=== PATIENT | male | born 1945 | race Caucasian/White ===

== ENCOUNTER 2016-08-11 10:27 | Inpatient (IN) | payer MEDICARE ==
[~2016-08-11] VITALS: Ht 172.7 cm; Wt 117.5 kg
[~2016-08-11 10:27] MED LIST: ACET-868 PO; ASPI81TA2 PO; CHOL100034 PO; CLON0.5T PO; DOCU-25 PO; FERR-58 PO; GABA-534 PO; HYDR-3326 PO; IBUP-1619 PO; LAMO200T39 PO; LEVO50TA PO; LIDO30AD10 TP; MAGN200T5 PO; ONDA-25 PO; OXCA150T5 PO; PANT40TA4 PO; POTA20TA83 PO
--- NOTE | 2016-08-11 10:32 | NUR ---
Pt bbra from b/c 881 for diarrhea. ER bed 3 . Pt placed on monitor. VSS.
--- NOTE | 2016-08-11 10:41 | NUR ---
DR QUEEN AT BEDSIDE FOR EVAL.
[2016-08-11] MEDS ORDERED: IV NS 0.9% 500 ML IV ONE (10:47)
[2016-08-11] MEDS ORDERED: IV SET PRIMARY PUMP SET 1 EA INFUS.SET MC ONE ×3 (10:48→16:48)
[2016-08-11] MEDS ORDERED: IV NS 0.9% 500 ML BAG IV ONE (11:00)
[2016-08-11 11:04] LABS: BASOPHILS % (AUTO) 0.6 % (0.0-2.0); EOSINOPHILS % (AUTO) 0.5 % (0.0-6.0); HEMATOCRIT 44 % (39-51); HEMOGLOBIN 14.9 g/dL (13.5-17.5); LYMPHOCYTES # (AUTO) 1.2 /CMM (0.8-4.8); LYMPHOCYTES % (AUTO) 17.8 % (20.0-44.0); MEAN CORPUSCULAR HEMOGLOBIN 31 PG (26.0-33.0); MEAN CORPUSCULAR HGB CONC 34 g/dl (31.0-36.0); MEAN CORPUSCULAR VOLUME 92 fL (80-96); MONOCYTES # (AUTO) 0.5 /CMM (0.1-1.30); MONOCYTES % (AUTO) 7.2 % (2.0-12.0); NEUTROPHILS # (AUTO) 5.2 /CMM (1.8-8.9); NEUTROPHILS % (AUTO) 73.9 % (43.0-81.0); PLATELET COUNT (AUTO) 218 /CMM (150-450); RDW COEFFICIENT OF VARIATION 12.7 (11.5-15.0); RED BLOOD CELL COUNT(AUTO) 4.76 MIL/uL (4.5-6.0); WHITE BLOOD COUNT (AUTO) 6.9 K/uL (4.3-11.0)
--- NOTE | 2016-08-11 11:14 | NUR ---
URINE SAMPLE COLLECTED SENT TO LAB
[2016-08-11 11:19] LABS: CALCIUM, SERUM 9.2 mg/dL (8.5-10.1); CREATININE 1.2 mg/dL (0.6-1.3); INR 1.07 (0.87-1.13); POTASSIUM 3.7 mmol/L (3.5-5.1); PROTHROMBIN TIME 11.1 SECS (9.5-12.7)
[2016-08-11 11:25] LABS: APPEARANCE,URINE Clear (CLEAR); BILIRUBIN,URINE Negative (NEGATIVE); BLOOD, URINE Negative Ery/uL (NEGATIVE); COLOR,URINE Yellow (YELLOW); KETONES,URINE Negative (NEGATIVE); LEUKOCYTE ESTERASE ,URINE Negative (NEGATIVE); NITRITE, URINE Negative (NEGATIVE); PH,URINE 5.5 (5.0-8.0); PROTEIN,URINE Negative (NEGATIVE); UGLUCOSE Negative (NEGATIVE); UROBILINOGEN,URINE 0.2 EU/dL (0.2)
[2016-08-11 11:25] LABS: ALBUMIN 3.5 g/dL (3.4-5.0); BILIRUBIN,DIRECT 0.1 mg/dL (0.0-0.2); BILIRUBIN,TOTAL 0.5 mg/dL (0.2-1.0); TOTAL PROTEIN, SERUM 6.9 g/dL (6.4-8.2)
--- NOTE | 2016-08-11 11:51 | NUR ---
CALLED KAR[facility] TO READ CT
[2016-08-11] MEDS ORDERED: FLAGYL/NS RTU 500 MG/100 ML PIGGYBACK IV ONE (12:30)
[2016-08-11] MEDS ORDERED: LEVOFLOXACIN 750 MG /D5W 150ML PIGGYBACK IV ONE (12:30)
--- NOTE | 2016-08-11 12:35 | NUR ---
CALLED (SURGEON DARKLIGHT INSPECTOR), TRANSFERRED CALL TO
[2016-08-11] MEDS ORDERED: LEVOFLOXACIN 750 MG /D5W 150ML 150 ML IV ONE (12:37)
[2016-08-11] MEDS ORDERED: METRONIDAZOLE 500MG/ NS 100ML 100 ML IV ONE (12:37)
[2016-08-11] MEDS ORDERED: IV SET PRIMARY 1 EA INFUS.SET MC ONE (12:37)
--- NOTE | 2016-08-11 12:39 | NUR ---
[facility] PAGED [phone] KAY ANIMAL PATHOLOGIST
--- NOTE | 2016-08-11 12:41 | NUR ---
CALLED NURSING SUP. FOR MS BED
[2016-08-11] MEDS ORDERED: IV NS 0.9% 1,000 ML IV PRN (13:23)
[2016-08-11] MEDS ORDERED: CALC500T52 PO (13:26)
[2016-08-11] MEDS ORDERED: POTA8TAB8 PO (13:26)
[2016-08-11] MEDS ORDERED: ATOR10TA PO (13:26)
[2016-08-11] MEDS ORDERED: TAMS-12 PO (13:26)
[2016-08-11] MEDS ORDERED: GABA-532 PO (13:26)
[2016-08-11] MEDS ORDERED: RISP0.253 PO (13:26)
[2016-08-11] MEDS ORDERED: FURO-144 PO (13:26)
[2016-08-11] MEDS ORDERED: HYDR-3976 PO (13:26)
[2016-08-11] MEDS ORDERED: Z GUARD REMEDY 2 OZ OINT TP PRN (13:30)
[2016-08-11] MEDS ORDERED: MAG HYDROX/AL HYDROX/SIMETH 30 ML UDC PO PRN (13:30)
[2016-08-11] MEDS ORDERED: MORPHINE SULFATE INJ 2 MG/ML DISP.SYRIN IV PRN (13:30)
[2016-08-11] MEDS ORDERED: HYDROCODONE/APAP 5/325MG 1 EACH TABLET PO PRN (13:30)
[2016-08-11] MEDS ORDERED: ACETAMINOPHEN 325 MG TABLET PO PRN (13:30)
[2016-08-11] MEDS ORDERED: MAGNESIUM HYDROXIDE 30 ML UDC PO PRN (13:30)
[2016-08-11] MEDS ORDERED: ONDANSETRON HCL/PF 4 MG/2 ML VIAL IVP PRN (13:30)
--- NOTE | 2016-08-11 13:35 | NUR ---
GAVE REPORT TO JOSE ANN MEDSURG [id number]
[2016-08-11 15:00] VITALS: BP 123/70
--- NOTE | 2016-08-11 15:00 | NUR ---
M/S RN - ADMISSION RECEIVED REPORT FROM LAND INSPECTOR. PT BROUGHT TO FLOOR VIA GURNEY. NO S/S OF DISTRESS. AOX4. DENIES SOB. DENIES CHEST PAIN. DENIES ANY OTHER PAIN. IV HL PATENT AND INTACT. PT SKIN CHECKED AND INTACT. PT DENIES ABDOMINAL PAIN AT THIS TIME, LAST DIARRHEA EPISODE WAS IN ER. ALL BELONGINGS CONFIRMED WITH PT AT TIME OF TRANSFER. PT ORIENTED TO ROOM. SIDE RAILS UPX2, BED ALARM ON, CALL LIGHT WITHIN REACH, BED LOCKED AND IN LOWEST POSITION.
[2016-08-11 16:00] VITALS: BP 123/70
[2016-08-11] MEDS: MAGNESIUM OXIDE 400 MG TABLET PO SCH ×2 (16:38→16:50)
[2016-08-11] MEDS: risperiDONE 0.25 MG TABLET PO SCH (16:41)
[2016-08-11] MEDS: GABAPENTIN 100 MG CAPSULE PO SCH (16:47)
[2016-08-11] MEDS ORDERED: SECONDARY IV SET 1 EA INFUS.SET MC ONE (16:49)
[2016-08-11] MEDS: METRONIDAZOLE 500MG/ NS 100ML 500 MG in PREMIX 1 EA IV SCH (17:32)
[2016-08-11] MEDS: IV NS 0.9% 1,000 ML IV PRN (17:34)
--- NOTE | 2016-08-11 18:50 | NUR ---
M/S RN - CLOSING NOTE PT RESTING IN BED. NO S/S OF DISTRESS. BREATHING IS EVEN AND UNLABORED ON RA. DENIES PAIN. NO DIARRHEA DURING SHIFT. EDUCATED PT TO CALL NURSE FOR STOOL COLLECTION. IVF RUNNING. SIDE RAILS UPX2, CALL LIGHT WITHIN REACH, BED LOCKED AND IN LOWEST POSITION. WILL ENDORSE TO RADIOLOGIC TECHNOLOGY INSTRUCTOR FOR NICOLETTE.
--- NOTE | 2016-08-11 19:00 | NUR ---
MS RN OPENING NOTES RECEIVED PATIENT IN BED IN STABLE CONDITION, SEMI FOWLERS POSITION, NO S/S OF DISTRESS NO SOB, NO CHEST PAIN. NO COMPLAINS OF PAIN. WITH NO S/S OF DISTRESS NOTED, IV SITE INTACT WITH S/S OF INFILTRATION. HAZARD FREE ENVIRONMENT.ON LOW BED TO ENSURE SAFETY, CALL LIGHT WITHIN REACH. WILL CONTINUE TO MONITOR
[2016-08-11 20:00] VITALS: BP 120/57
[2016-08-11 20:25] VITALS: BP 120/57
[2016-08-11] MEDS: FERROUS SULFATE (325 MG) 325 MG/TAB TABLET PO SCH (21:23)
[2016-08-11] MEDS: FUROSEMIDE 40 MG TABLET PO SCH (21:23)
[2016-08-11] MEDS: CIPROFLOXACIN IV RTU 200 MG in PREMIX 1 EA IV SCH (21:23)
[2016-08-11] MEDS: DOCUSATE SODIUM 100 MG CAPSULE PO SCH (21:23)
[2016-08-11] MEDS: ATORVASTATIN 10 MG TABLET PO SCH (21:23)
[2016-08-11] MEDS: TAMSULOSIN 0.4 MG CAP.SR.24H PO SCH (21:23)
[2016-08-11] MEDS: ZOLPIDEM TARTRATE 5 MG TABLET PO PRN (21:24)
[2016-08-11] MEDS: POTASSIUM CHLORIDE 10 MEQ TABLET.SA PO SCH (21:24)
[2016-08-11] MEDS: CALCIUM CARBONATE (1250) 500 MG TABLET PO SCH (21:25)
[2016-08-12] MEDS: METRONIDAZOLE 500MG/ NS 100ML 500 MG in PREMIX 1 EA IV SCH ×4 (00:03→17:58)
[2016-08-12] MEDS ORDERED: IV SET PRIMARY PUMP SET 1 EA INFUS.SET MC ONE ×2 (00:30→20:51)
--- NOTE | 2016-08-12 06:50 | NUR ---
MS RN CLOSING NOTES PATIENT COMFORTABLY ASLEEP AND EASILY AWAKEN, HEAD OF BED ELEVATED FOR BETTER LUNG EXPANSION TOLERATING ROOM AIR. ON ATB NO A/R NOTED, IV SITE NO S/S OF INFILTRATED, PATIENT DENIES PAIN AT THIS TIME. 0/10 RESPIRATIONS EVEN AND UNLABORED. LUNG SOUNDS CLEAR UPON AUSCULTATION, NO S/S OF ACUTE DISTRESS, NO SOB, NO COUGH, NO CONGESTION, SKIN WARM AND DRY TO TOUCH, AFEBRILE, ALL NURSING CARE NEEDS PROVIDED AND RENDERED, NEEDS ATTENDED AND ANTICIPATED, KEPT CLEAN AND DRY AND COMFORTABLE, BLADDER NOT DISTENDED, GOOD SKIN ARE PROVIDED. OFFLOAD AT ALL TIMES. ABDOMEN SOFT AND NON TENDER. NO C/O OF CONSTIPATION. NO BM. ALL DUE MEDS WAS GIVEN TOLERATED. FREQUENT VISUAL CHECK DONE FOR SAFETY EVERY 2 HOURS. SAFE HAZARD FREE ENVIRONMENT PROVIDED. CALL LIGHT WITHIN EASY TO REACH, ON LOW BED AT ALL TIMES TO ENSURE SAFETY, WILL ENDORSE TO THE NEXT SHIFT CONTINUE PLAN OF CARE.
--- NOTE | 2016-08-12 07:09 | NUR ---
MS RN NOTES 0700 MEDS RISPERDAL WILL BE GIVEN A RN DAY NURSE ENDORSE IT PER REQUEST OF THE PATIENT HE WANTS TO EAT FIRST
[2016-08-12 07:30] LABS: BASOPHILS % (AUTO) 0.5 % (0.0-2.0); EOSINOPHILS # (AUTO) 0.1 /CMM (0.0-0.7); EOSINOPHILS % (AUTO) 1.1 % (0.0-6.0); HEMATOCRIT 40 % (39-51); HEMOGLOBIN 13.6 g/dL (13.5-17.5); LYMPHOCYTES # (AUTO) 1.8 /CMM (0.8-4.8); LYMPHOCYTES % (AUTO) 23.5 % (20.0-44.0); MEAN CORPUSCULAR HEMOGLOBIN 32 PG (26.0-33.0); MEAN CORPUSCULAR HGB CONC 34 g/dl (31.0-36.0); MEAN CORPUSCULAR VOLUME 93 fL (80-96); MONOCYTES # (AUTO) 0.8 /CMM (0.1-1.30); MONOCYTES % (AUTO) 10.7 % (2.0-12.0); NEUTROPHILS # (AUTO) 4.8 /CMM (1.8-8.9); NEUTROPHILS % (AUTO) 64.2 % (43.0-81.0); PLATELET COUNT (AUTO) 205 /CMM (150-450); RDW COEFFICIENT OF VARIATION 13.6 (11.5-15.0); RED BLOOD CELL COUNT(AUTO) 4.25 MIL/uL (4.5-6.0); WHITE BLOOD COUNT (AUTO) 7.5 K/uL (4.3-11.0)
--- NOTE | 2016-08-12 07:40 | NUR ---
RN AM NOTES RECEIVED PATIENT IN BED AWAKE, WITH POSITIVE AFFECT. ALERT AND ORIENTED X3. NO COMPLAINTS OF PAIN, SOB OR SIGNS OR SYMPTOMS OF DISTRESS NOTED. REVIEWED WITH PATIENT ABOUT BEING A FALL RISK AND EXPLAINED TO HIM WHY HIS BED ALARM GOES OFF WHEN HE MOVES TOO FAR OFF THE BED. PATIENT VERBALIZED UNDERSTANDING. WILL CONTINUE TO MONITOR.
[2016-08-12 07:57] LABS: ALBUMIN 2.9 g/dL (3.4-5.0); BILIRUBIN,TOTAL 0.5 mg/dL (0.2-1.0); CALCIUM, SERUM 9.1 mg/dL (8.5-10.1); CREATININE 1.2 mg/dL (0.6-1.3); MAGNESIUM 1.8 mg/dL (1.8-2.4); PHOSPHORUS 3.1 mg/dL (2.5-4.9); POTASSIUM 4.4 mmol/L (3.5-5.1); TOTAL PROTEIN, SERUM 5.9 g/dL (6.4-8.2)
[2016-08-12 08:00] VITALS: BP 107/61
[2016-08-12] MEDS: GABAPENTIN 100 MG CAPSULE PO SCH ×2 (08:20→17:54)
[2016-08-12] MEDS: CHOLECALCIFEROL 1,000 UNIT TABLET (VIT D3) PO SCH (08:20)
[2016-08-12] MEDS: CIPROFLOXACIN IV RTU 200 MG in PREMIX 1 EA IV SCH ×2 (08:20→20:53)
[2016-08-12] MEDS: ASPIRIN 81 MG TAB.CHEW PO SCH (08:20)
[2016-08-12] MEDS: risperiDONE 0.25 MG TABLET PO SCH ×2 (08:21→17:54)
[2016-08-12] MEDS: LEVOTHYROXINE SODIUM 50 MCG TABLET PO SCH (08:21)
[2016-08-12] MEDS: PANTOPRAZOLE 40 MG VIAL IV SCH (08:45)
[2016-08-12] MEDS: MAGNESIUM OXIDE 400 MG TABLET PO SCH ×2 (08:45→17:54)
[2016-08-12] MEDS ORDERED: SECONDARY IV SET 1 EA INFUS.SET MC ONE ×2 (12:41→20:51)
[2016-08-12] MEDS: clonazePAM 0.5 MG TABLET PO PRN ×3 (12:56→19:41)
--- NOTE | 2016-08-12 12:58 | NUR ---
OFFERED PATIENT FULL DOSE OF KLONOPIN 1 MG UPON REQUEST FOR ANXIETY. PATIENT CHANGED MIND AND WANTED ONLY KLONOPIN 0.5 MG AT LAST MOMENT. ADMINISTERED KLONOPIN 0.5 MG, WASTED KLONOPIN 0.5 MG. WILL CONTINUE TO MONITOR
[2016-08-12] MEDS ORDERED: ENOXAPARIN SODIUM 40 MG/0.4 ML DISP.SYRIN SQ SCH (15:30)
[2016-08-12 16:00] VITALS: BP 105/55
--- NOTE | 2016-08-12 18:56 | NUR ---
RN PM NOTES PATIENT IN BED AWAKE, ALERT. NO SOB, DISTRESS OR PAIN, ALL NEEDS MET. TOLERATING IV FLUIDS WELL. NEED TO COLLECT STOOL SAMPLE PER MD ORDER, NO BOWEL MOVEMENT YET, BUT PATIENT SAYS HE WILL CALL US WHEN HE HAS ONE. WILL ENDORSE TO NEXT SHIFT.
[2016-08-12 20:00] VITALS: BP_SYST 100; BP_SYST 107; BP_DIAS 60; BP_DIAS 66
[2016-08-12] MEDS: IV NS 0.9% 1,000 ML IV PRN (20:54)
[2016-08-12] MEDS: POTASSIUM CHLORIDE 10 MEQ TABLET.SA PO SCH (21:14)
[2016-08-12] MEDS: FERROUS SULFATE (325 MG) 325 MG/TAB TABLET PO SCH (21:14)
[2016-08-12] MEDS: CALCIUM CARBONATE (1250) 500 MG TABLET PO SCH (21:14)
[2016-08-12] MEDS: ATORVASTATIN 10 MG TABLET PO SCH (21:14)
[2016-08-12] MEDS: FUROSEMIDE 40 MG TABLET PO SCH (21:15)
[2016-08-12] MEDS: DOCUSATE SODIUM 100 MG CAPSULE PO SCH (21:15)
[2016-08-12] MEDS: TAMSULOSIN 0.4 MG CAP.SR.24H PO SCH (21:15)
[2016-08-12] MEDS: ZOLPIDEM TARTRATE 5 MG TABLET PO PRN (21:32)
[2016-08-13] MEDS: METRONIDAZOLE 500MG/ NS 100ML 500 MG in PREMIX 1 EA IV SCH ×3 (01:09→12:20)
--- NOTE | 2016-08-13 06:52 | NUR ---
MS RN NOTES AWAKE & RESPONSIVE. NOT IN ANY DISTRESS. NO SOB NOTED. DENIES ANY PAIN OR DISCOMFORT AT THIS TIME. WITH IVF INFUSING WELL. AM CARE DONE. MONITORED ACCORDINGLY. CALL LIGHT WITHIN REACH. BED IN LOWEST POSITION. SR UP X 2 FOR SAFETY. WILL ENDORSE TO NEXT SHIFT.
[2016-08-13 07:20] LABS: CALCIUM, SERUM 8.9 mg/dL (8.5-10.1); POTASSIUM 3.6 mmol/L (3.5-5.1)
--- NOTE | 2016-08-13 07:30 | NUR ---
RN MS NOTES PT IN BED, AWAKE, ALERT AND ORIENTED, NO COMPLAINT OF PAIN, BREATHING PATTERN NORMAL, IV FLUIDS INFUSING WELL, CALL LIGHT WITHIN REACH, NEEDS ATTENDED, KEPT COMFORTABLE.
[2016-08-13 07:41] LABS: BASOPHILS % (AUTO) 0.7 % (0.0-2.0); EOSINOPHILS # (AUTO) 0.1 /CMM (0.0-0.7); EOSINOPHILS % (AUTO) 1.4 % (0.0-6.0); HEMATOCRIT 38 % (39-51); HEMOGLOBIN 12.9 g/dL (13.5-17.5); LYMPHOCYTES # (AUTO) 1.8 /CMM (0.8-4.8); LYMPHOCYTES % (AUTO) 26.1 % (20.0-44.0); MEAN CORPUSCULAR HEMOGLOBIN 32 PG (26.0-33.0); MEAN CORPUSCULAR HGB CONC 34 g/dl (31.0-36.0); MEAN CORPUSCULAR VOLUME 94 fL (80-96); MONOCYTES # (AUTO) 0.6 /CMM (0.1-1.30); MONOCYTES % (AUTO) 9.1 % (2.0-12.0); NEUTROPHILS # (AUTO) 4.4 /CMM (1.8-8.9); NEUTROPHILS % (AUTO) 62.7 % (43.0-81.0); PLATELET COUNT (AUTO) 200 /CMM (150-450); RDW COEFFICIENT OF VARIATION 13.9 (11.5-15.0); RED BLOOD CELL COUNT(AUTO) 4.09 MIL/uL (4.5-6.0); WHITE BLOOD COUNT (AUTO) 6.9 K/uL (4.3-11.0)
[2016-08-13 08:00] VITALS: BP 112/69
[2016-08-13] MEDS: CIPROFLOXACIN IV RTU 200 MG in PREMIX 1 EA IV SCH (09:29)
[2016-08-13] MEDS: GABAPENTIN 100 MG CAPSULE PO SCH (09:30)
[2016-08-13] MEDS: ASPIRIN 81 MG TAB.CHEW PO SCH (09:30)
[2016-08-13] MEDS: LEVOTHYROXINE SODIUM 50 MCG TABLET PO SCH (09:30)
[2016-08-13] MEDS: PANTOPRAZOLE 40 MG VIAL IV SCH (09:30)
[2016-08-13] MEDS: MAGNESIUM OXIDE 400 MG TABLET PO SCH (09:31)
[2016-08-13] MEDS: CHOLECALCIFEROL 1,000 UNIT TABLET (VIT D3) PO SCH (09:31)
[2016-08-13] MEDS: risperiDONE 0.25 MG TABLET PO SCH (09:31)
[2016-08-13] MEDS ORDERED: METR500T PO (12:25)
[2016-08-13] MEDS ORDERED: CIPR500T5 PO (12:25)
--- NOTE | 2016-08-13 13:00 | NUR ---
RN MS NOTES PT IN BED, NO COMPLAINT AT THIS TIME, PT SEEN BY GOMEZ HASSAN. DISCHARGE ORDER GIVEN, DISCHARGE AND MEDICATION INSTRUCTIONS PROVIDED TO PT, VERBALIZED UNDERSTANDING, PRESCRIPTION MEDS EDUCATION PROVIDED TO PT, VERBALIZED UNDERSTANDING, BELONGINGS ACCOUNTED FOR, AWAITING AMBULANCE CATH LAB MANAGER.
[2016-08-13 16:00] VITALS: BP 123/66
--- NOTE | 2016-08-13 16:11 | NUR ---
RN MS NOTES PT IN BED, AWAKE, ALERT AND ORIENTED, NO COMPLAINT OF PAIN, PICKED UP BY 2 AMBULANCE PERSONNEL FOR TRANSPORT TO [facility], LEFT WITH ALL BELONGINGS AND MEDICATIONS, LEFT VIA GUERNEY IN STABLE CONDITION.
== END 2016-08-13 16:15 | disposition home or self-care (01) | DRG 392 ==
LOC: ER 10:29 → MED 13:37
PROVIDERS: ADMIT Family Medicine; ATTEND Family Medicine
DX: K57.92 Diverticulitis of intestine, part unspecified, without perforation or abscess without bleeding (principal); I50.32 Chronic diastolic (congestive) heart failure; I13.0 Hypertensive heart and chronic kidney disease with heart failure and stage 1 through stage 4 chronic kidney disease, or unspecified chronic kidney disease; E78.5 Hyperlipidemia, unspecified; I25.10 Atherosclerotic heart disease of native coronary artery without angina pectoris; N18.9 Chronic kidney disease, unspecified; E11.22 Type 2 diabetes mellitus with diabetic chronic kidney disease; N40.0 Benign prostatic hyperplasia without lower urinary tract symptoms; F31.9 Bipolar disorder, unspecified; F41.9 Anxiety disorder, unspecified; G31.84 Mild cognitive impairment of uncertain or unknown etiology; D50.9 Iron deficiency anemia, unspecified; E66.01 Morbid (severe) obesity due to excess calories; E03.9 Hypothyroidism, unspecified; K57.32 Diverticulitis of large intestine without perforation or abscess without bleeding; J44.9 Chronic obstructive pulmonary disease, unspecified; M19.90 Unspecified osteoarthritis, unspecified site; K21.9 Gastro-esophageal reflux disease without esophagitis; I87.2 Venous insufficiency (chronic) (peripheral)
CPT/HCPCS: 36415; 80048-TC; 80053-TC; 80076-TC; 81000-TC; 83690-TC; 83735-TC; 84100-TC; 85025-TC; 85730-TC; 87081-TC; A4216; A4606; C9113; J0744; J1650; J1956; J3490; J7030; J7040; Z7610

== ENCOUNTER 2016-09-16 08:40 | Emergency (ER) | payer MEDICARE ==
[~2016-09-16] VITALS: Ht 172.7 cm; Wt 112.9 kg
[~2016-09-16 08:40] MED LIST changes: +ATOR10TA PO; +CALC500T52 PO; +CIPR500T5 PO; +FURO-144 PO; +GABA-532 PO; -GABA-534 PO; -HYDR-3326 PO; +HYDR-3976 PO; -LAMO200T39 PO; -LIDO30AD10 TP; +METR500T PO; -ONDA-25 PO; -OXCA150T5 PO; -POTA20TA83 PO; +POTA8TAB8 PO; +RISP0.253 PO; +TAMS-12 PO
--- NOTE | 2016-09-16 08:44 | NUR ---
AAOX3, BIBRA 889 FROM B&C C/O PAIN DURING URINATION AND CONSTIPATION, LAST BM WAS 5 DAYS AGO PER PATIENT REPORT. ASSISTED TO HOSPITAL GOWN. NO ACUTE APPARENT DISTRESS NOTED. SKIN IS WARM AND DRY. RESP EVEN AND UNLABORED. AWAITING MD FOR EVAL.
[2016-09-16] MEDS ORDERED: MINERAL OIL 133 ML (PYXIS) 1 EA ENEMA RC ONE ×2 (09:00→09:01)
[2016-09-16 09:30] LABS: APPEARANCE,URINE Slightly Cloudy (CLEAR); BILIRUBIN,URINE Negative (NEGATIVE); BLOOD, URINE Large Ery/uL (NEGATIVE); COLOR,URINE Yellow (YELLOW); KETONES,URINE 15 (NEGATIVE); LEUKOCYTE ESTERASE ,URINE Small (NEGATIVE); NITRITE, URINE Negative (NEGATIVE); PH,URINE 7.5 (5.0-8.0); PROTEIN,URINE 100 mg/dl (NEGATIVE); UGLUCOSE Negative (NEGATIVE); UROBILINOGEN,URINE 0.2 EU/dL (0.2)
[2016-09-16 09:41] LABS: ADD URINE CULTURE YES; BACTERIA,URINE Few /HPF (None Seen); RBC,URINE 21-50 /HPF (0-2); SQUAMOUS EPITHELIAL CELL,UR Few /HPF (None Seen); WBC,URINE 51-80 /HPF (0-3)
[2016-09-16] MEDS ORDERED: PHENAZOPYRIDINE HCL 200 MG TABLET PO ONE (10:00)
[2016-09-16] MEDS ORDERED: CIPROFLOXACIN HCL 250 MG TABLET PO ONE (10:00)
[2016-09-16] MEDS ORDERED: PHENAZOPYRIDINE HCL 200 MG TABLET ONE (10:13)
[2016-09-16] MEDS ORDERED: CIPROFLOXACIN HCL 500 MG TABLET ONE (10:13)
--- NOTE | 2016-09-16 10:15 | NUR ---
ISABEL AT BS.
--- NOTE | 2016-09-16 10:46 | NUR ---
Called [facility] ETA=30 minutes
--- NOTE | 2016-09-16 11:27 | NUR ---
REPORT GIVEN TO [facility] STAFF FOR TRANSPORT BACK TO [facility].
[2016-09-16 11:29] VITALS: BP 120/70
== END 2016-09-16 11:30 | disposition home or self-care (01) ==
LOC: ER 08:42
DX: N39.0 Urinary tract infection, site not specified (principal); K59.00 Constipation, unspecified; I10 Essential (primary) hypertension; E03.9 Hypothyroidism, unspecified; G89.29 Other chronic pain; I87.8 Other specified disorders of veins; Z79.82 Long term (current) use of aspirin; Z90.89 Acquired absence of other organs
CPT/HCPCS: 74000-TC; 81000-TC; 87086-TC; A4606; Z7610

== ENCOUNTER 2016-09-28 04:56 | Emergency (ER) | payer MEDICARE ==
[~2016-09-28] VITALS: Ht 172.7 cm; Wt 108.9 kg
--- NOTE | 2016-09-28 05:03 | NUR ---
DR IBARRA AT BEDSIDE FOR EVAL.
--- NOTE | 2016-09-28 05:04 | NUR ---
PT BIBRA W/ CO DIARRHEA X 5 SINCE 2299. YESTERDAY. DENIES N/V. DENIES ABD PAIN AT THIS TIME. AWAITING ER MD FOR FURTHER ORDERS
[2016-09-28] MEDS ORDERED: IV NS 0.9% 1,000 ML ONE (05:06)
[2016-09-28] MEDS ORDERED: IV SET PRIMARY 1 EA INFUS.SET MC ONE (05:06)
--- NOTE | 2016-09-28 05:22 | NUR ---
INSERTED IV SL IN L AC 20 G. BLOOD DRAWN AND SENT TO LAB.
[2016-09-28 05:23] LABS: BASOPHILS % (AUTO) 0.4 % (0.0-2.0); EOSINOPHILS % (AUTO) 0.2 % (0.0-6.0); HEMATOCRIT 46 % (39-51); HEMOGLOBIN 15.3 g/dL (13.5-17.5); LYMPHOCYTES # (AUTO) 1.6 /CMM (0.8-4.8); LYMPHOCYTES % (AUTO) 12.8 % (20.0-44.0); MEAN CORPUSCULAR HEMOGLOBIN 31 PG (26.0-33.0); MEAN CORPUSCULAR HGB CONC 33 g/dl (31.0-36.0); MEAN CORPUSCULAR VOLUME 92 fL (80-96); MONOCYTES # (AUTO) 0.7 /CMM (0.1-1.30); MONOCYTES % (AUTO) 5.6 % (2.0-12.0); NEUTROPHILS # (AUTO) 9.9 /CMM (1.8-8.9); PLATELET COUNT (AUTO) 218 /CMM (150-450); RDW COEFFICIENT OF VARIATION 13.6 (11.5-15.0); RED BLOOD CELL COUNT(AUTO) 4.96 MIL/uL (4.5-6.0); WHITE BLOOD COUNT (AUTO) 12.2 K/uL (4.3-11.0)
[2016-09-28] MEDS ORDERED: IV NS 0.9% 500 ML BAG IV ONE (05:30)
[2016-09-28 05:36] LABS: CALCIUM, SERUM 9.8 mg/dL (8.5-10.1); CREATININE 1.2 mg/dL (0.6-1.3); POTASSIUM 3.7 mmol/L (3.5-5.1)
[2016-09-28] MEDS ORDERED: IV SET PRIMARY PUMP SET 1 EA INFUS.SET MC ONE (05:36)
--- NOTE | 2016-09-28 05:44 | NUR ---
[facility] ETA 1 HR.
[2016-09-28 06:02] VITALS: BP 115/54
--- NOTE | 2016-09-28 06:50 | NUR ---
REPORT GIVEN TO Angel MACKAY EMT, [facility] TRANSPORT FOR CONTINUTION OF CARE. PT IN STABLE CONDITION. Patient discharged to [facility] in stable condition. Written and verbal after care instructions given. Patient verbalizes understanding of instruction. PT TRANSPORTED VIA AMBULANCE.
== END 2016-09-28 06:56 | disposition home or self-care (01) ==
LOC: ER 04:58
DX: R19.7 Diarrhea, unspecified (principal); I10 Essential (primary) hypertension; E03.9 Hypothyroidism, unspecified; F10.20 Alcohol dependence, uncomplicated
CPT/HCPCS: 36415; 80048; 85025; 99284; A4606; J7030; Z7610

== ENCOUNTER 2016-10-09 12:52 | Emergency (ER) | payer MEDICARE ==
[~2016-10-09] VITALS: Ht 177.8 cm; Wt 124.7 kg
--- NOTE | 2016-10-09 13:00 | NUR ---
BIBRA FROM BOARD AND CARE DUE TO DIFFICULTY URINATING X 2 WEEKS. PATIENT DENIES HEAMTURIA. SKIN IS WARM TO TOUCH AND NON DIAPHORETIC. PATIENT IS AFEBRILE. VSS. WILL CONT TO MONITOR
--- NOTE | 2016-10-09 13:20 | NUR ---
IV ACCESSED TO LAC 20. BLOOD SAMPLE SENT TO LAB
[2016-10-09] MEDS ORDERED: IV NS 0.9% 1,000 ML ONE (13:21)
[2016-10-09 13:22] LABS: BASOPHILS # (AUTO) 0.2 /CMM (0.0-0.2); BASOPHILS % (AUTO) 1.8 % (0.0-2.0); EOSINOPHILS % (AUTO) 0.5 % (0.0-6.0); HEMATOCRIT 45 % (39-51); HEMOGLOBIN 15.1 g/dL (13.5-17.5); LYMPHOCYTES # (AUTO) 1.3 /CMM (0.8-4.8); LYMPHOCYTES % (AUTO) 15.6 % (20.0-44.0); MEAN CORPUSCULAR HEMOGLOBIN 31 PG (26.0-33.0); MEAN CORPUSCULAR HGB CONC 34 g/dl (31.0-36.0); MEAN CORPUSCULAR VOLUME 92 fL (80-96); MONOCYTES # (AUTO) 0.6 /CMM (0.1-1.30); MONOCYTES % (AUTO) 6.9 % (2.0-12.0); NEUTROPHILS # (AUTO) 6.2 /CMM (1.8-8.9); NEUTROPHILS % (AUTO) 75.2 % (43.0-81.0); PLATELET COUNT (AUTO) 220 /CMM (150-450); RDW COEFFICIENT OF VARIATION 13.1 (11.5-15.0); RED BLOOD CELL COUNT(AUTO) 4.84 MIL/uL (4.5-6.0); WHITE BLOOD COUNT (AUTO) 8.3 K/uL (4.3-11.0)
[2016-10-09 13:29] LABS: CALCIUM, SERUM 9.5 mg/dL (8.5-10.1); CREATININE 1.2 mg/dL (0.6-1.3)
[2016-10-09] MEDS ORDERED: IV NS 0.9% 1,000 ML BAG IV ONE (13:30)
--- NOTE | 2016-10-09 13:30 | NUR ---
( 16) FR nichols catheter inserted per sterile protocal. Immediate output (50 )ML of urine, color (YELLOW ), clarity ( CLEAR)
[2016-10-09 13:34] LABS: ALBUMIN 3.5 g/dL (3.4-5.0); APPEARANCE,URINE Cloudy (CLEAR); BILIRUBIN,DIRECT 0.2 mg/dL (0.0-0.2); BILIRUBIN,TOTAL 0.7 mg/dL (0.2-1.0); BILIRUBIN,URINE Negative (NEGATIVE); BLOOD, URINE Small Ery/uL (NEGATIVE); COLOR,URINE Yellow (YELLOW); INR 1.09 (0.87-1.13); KETONES,URINE Negative (NEGATIVE); LEUKOCYTE ESTERASE ,URINE Large (NEGATIVE); NITRITE, URINE Positive (NEGATIVE); PROTEIN,URINE Negative (NEGATIVE); PROTHROMBIN TIME 11.3 SECS (9.5-12.7); TOTAL PROTEIN, SERUM 7.1 g/dL (6.4-8.2); UGLUCOSE Negative (NEGATIVE); UROBILINOGEN,URINE 0.2 EU/dL (0.2)
--- NOTE | 2016-10-09 13:38 | NUR ---
URINE SAMPLE SENT
[2016-10-09 13:40] LABS: ADD URINE CULTURE YES; BACTERIA,URINE 1+ /HPF (None Seen); SQUAMOUS EPITHELIAL CELL,UR Rare /HPF (None Seen); URINE AMORPHOUS PHOSPHATES Few /HPF (None Seen)
[2016-10-09] MEDS ORDERED: CIPROFLOXACIN HCL 500 MG TABLET PO ONE (14:00)
[2016-10-09] MEDS ORDERED: CIPROFLOXACIN HCL 500 MG TABLET ONE (14:10)
--- NOTE | 2016-10-09 14:35 | NUR ---
[facility], ADDRESS: [id number] [place] [address] PHONE NUMBER: [phone], ETA 45 MIN- 1 HOUR
[2016-10-09 14:59] VITALS: BP 120/70
--- NOTE | 2016-10-09 15:00 | NUR ---
PT WAS PICKED UP BY TWO STATISTICAL CLERK. JHONYS
== END 2016-10-09 15:01 | disposition home or self-care (01) ==
LOC: ER 12:54
DX: N39.0 Urinary tract infection, site not specified (principal); M25.552 Pain in left hip; M25.551 Pain in right hip; G89.29 Other chronic pain; I10 Essential (primary) hypertension; K21.9 Gastro-esophageal reflux disease without esophagitis; E78.00 Pure hypercholesterolemia, unspecified; E03.9 Hypothyroidism, unspecified; I87.8 Other specified disorders of veins; Z79.82 Long term (current) use of aspirin
CPT/HCPCS: 36415; 51702; 80048; 80076; 81001; 85025; 85730; 87086; 96360; 99284; A4606; J7030; 81000-TC; 87186-TC; Z7610

== ENCOUNTER 2016-10-23 13:10 | Emergency (ER) | payer MEDICARE ==
[~2016-10-23] VITALS: Ht 172.7 cm; Wt 108.9 kg
--- NOTE | 2016-10-23 13:15 | NUR ---
BIB C/O RLQ ABD PAIN AND ANAL PAIN. PT AAO. IV LINE STARTED. ATTACHED TO MONITOR. SEEN BY . CONNIE. MEDICATED ORDERED.
[2016-10-23] MEDS ORDERED: MORPHINE SULFATE INJ 2 MG/ML DISP.SYRIN IM ONE (13:30)
[2016-10-23] MEDS ORDERED: ONDANSETRON 4 MG TAB.RAPDIS SL ONE (13:30)
[2016-10-23 14:04] LABS: BASOPHILS # (AUTO) 0.2 /CMM (0.0-0.2); BASOPHILS % (AUTO) 2.8 % (0.0-2.0); EOSINOPHILS % (AUTO) 0.6 % (0.0-6.0); HEMATOCRIT 43 % (39-51); HEMOGLOBIN 14.5 g/dL (13.5-17.5); LYMPHOCYTES # (AUTO) 1.5 /CMM (0.8-4.8); MEAN CORPUSCULAR HEMOGLOBIN 32 PG (26.0-33.0); MEAN CORPUSCULAR HGB CONC 34 g/dl (31.0-36.0); MEAN CORPUSCULAR VOLUME 93 fL (80-96); MONOCYTES # (AUTO) 0.5 /CMM (0.1-1.30); MONOCYTES % (AUTO) 6.3 % (2.0-12.0); NEUTROPHILS % (AUTO) 72.3 % (43.0-81.0); PLATELET COUNT (AUTO) 224 /CMM (150-450); RDW COEFFICIENT OF VARIATION 13.1 (11.5-15.0); WHITE BLOOD COUNT (AUTO) 8.2 K/uL (4.3-11.0)
[2016-10-23 14:16] LABS: CALCIUM, SERUM 9.2 mg/dL (8.5-10.1); CREATININE 1.3 mg/dL (0.6-1.3); POTASSIUM 3.8 mmol/L (3.5-5.1)
[2016-10-23 14:21] LABS: ALBUMIN 3.5 g/dL (3.4-5.0); BILIRUBIN,DIRECT 0.2 mg/dL (0.0-0.2); BILIRUBIN,TOTAL 0.7 mg/dL (0.2-1.0); INR 1.09 (0.87-1.13); PROTHROMBIN TIME 11.3 SECS (9.5-12.7); TOTAL PROTEIN, SERUM 7.2 g/dL (6.4-8.2)
[2016-10-23] MEDS ORDERED: IV NS 0.9% 250 ML IV ONE (14:44)
[2016-10-23] MEDS ORDERED: IOHEXOL-300 100 ML VIAL IV ONE (14:44)
[2016-10-23] MEDS ORDERED: CT SWABBABLE VALVE TRANS SET 1 EA INFUS.SET MC ONE (14:44)
[2016-10-23] MEDS ORDERED: oxyCODONE/APAP (5/325 MG) 1 UDTAB TABLET ONE (16:25)
[2016-10-23] MEDS ORDERED: oxyCODONE/APAP (5/325 MG) 1 UDTAB TABLET PO ONE (16:30)
--- NOTE | 2016-10-23 16:42 | NUR ---
PT DIAPER CHANGED
--- NOTE | 2016-10-23 16:42 | NUR ---
IV removed. Catheter intact and site benign. Pressure and 4x4 applied to site. No bleeding noted.
[2016-10-23 16:43] VITALS: BP 131/64
== END 2016-10-23 16:43 | disposition home or self-care (01) ==
LOC: ER 13:15
DX: R10.31 Right lower quadrant pain (principal); K62.89 Other specified diseases of anus and rectum; I10 Essential (primary) hypertension; E78.00 Pure hypercholesterolemia, unspecified; K21.9 Gastro-esophageal reflux disease without esophagitis; G89.29 Other chronic pain; Z79.82 Long term (current) use of aspirin; E03.9 Hypothyroidism, unspecified
CPT/HCPCS: 36415; 74160; 80048; 80076; 83690; 85025; 85730; 99285; A4606; J7050; Q9967; Z7610

== ENCOUNTER 2017-07-24 01:22 | Emergency (ER) | payer MEDICARE ==
[~2017-07-24] VITALS: Ht 172.7 cm; Wt 110.7 kg
[~2017-07-24 01:22] MED LIST changes: +ASPI-1169 PO; -ASPI81TA2 PO; +DOCU-141 PO; -DOCU-25 PO; -FERR-58 PO; +FERR325T24 PO; -IBUP-1619 PO; +IBUP-2269 PO
--- NOTE | 2017-07-24 01:22 | NUR ---
RLE BRUISING, DISCOLORATION S/P ABLASION PERFORMED AT [facility]. STATES "IT WAS HOT AND RED EARLIER. THIS IS NOT AN ISSUE RELATED TO TAPE MAKING MY SKIN IRRITATED". NO SOB NOTED WITH PAIN ON TOUCH 6/10 ON RIGHT UPPER THIGH. HAS BILATERAL RYAN SKIN PROBLEMS THAT HE SAID HE IS NOT WORRIED ABOUT. A/OX4 VSS NAD WITH FAMILY AT BEDSIDE. WILL CONTINUE TO MONITOR FOR ANY CHANGES
--- NOTE | 2017-07-24 01:47 | NUR ---
CATHLEEN, REFINING STILL OPERATOR CALLED.
--- NOTE | 2017-07-24 02:46 | NUR ---
PLUMBER GASFITTER AT BEDSIDE
--- NOTE | 2017-07-24 02:54 | NUR ---
LOADER OPERATOR/GROUND LEADER HAS STATED "NO DVT IN LEG" MD IBARRA MADE AWARE
[2017-07-24 03:04] VITALS: BP 150/81
== END 2017-07-24 03:05 | disposition home or self-care (01) ==
LOC: ER 01:25
DX: S80.11XA Contusion of right lower leg, initial encounter (principal); E03.9 Hypothyroidism, unspecified; I10 Essential (primary) hypertension; E78.00 Pure hypercholesterolemia, unspecified; K21.9 Gastro-esophageal reflux disease without esophagitis; F31.9 Bipolar disorder, unspecified; G89.29 Other chronic pain; Z90.89 Acquired absence of other organs; Z79.82 Long term (current) use of aspirin; X58.XXXA Exposure to other specified factors, initial encounter; Y93.89 Activity, other specified; Y92.89 Other specified places as the place of occurrence of the external cause; Y99.8 Other external cause status
CPT/HCPCS: 93971-TC; A4606; Z7610